=== PATIENT | male | born 1960 ===

== ENCOUNTER 2018-01-27 09:30 | Inpatient (IN) | payer OTHER ==
[~2018-01-27] VITALS: Ht 177.8 cm; Wt 86.2 kg
== END 2018-02-21 07:45 | disposition expired | DRG 329 ==
LOC: SURG 01-30 07:00 → RECOVERY 01-30 09:30 → O/R 02-13 08:30 → SURG 02-13 09:30 → O/R 02-13 16:20 → SURG 02-13 20:00 → SURH 02-14 13:36
PROVIDERS: Surgery
PROC: 0JX80ZZ Transfer Abdomen Subcutaneous Tissue and Fascia, Open Approach (ICD-10-PCS; 2018-02-13)
PROC: 0W9F00Z Drainage of Abdominal Wall with Drainage Device, Open Approach (ICD-10-PCS; 2018-02-13)
PROC: 0HB7XZZ Excision of Abdomen Skin, External Approach (ICD-10-PCS; 2018-02-13)
PROC: 0DQB4ZZ Repair Ileum, Percutaneous Endoscopic Approach (ICD-10-PCS; principal; 2018-02-13 20:00)
PROC: 0WUF0JZ Supplement Abdominal Wall with Synthetic Substitute, Open Approach (ICD-10-PCS; 2018-02-13 20:00)
PROC: 3E0F7GC Introduction of Other Therapeutic Substance into Respiratory Tract, Via Natural or Artificial Opening (ICD-10-PCS; 2018-02-18)
PROC: 4A033R1 Measurement of Arterial Saturation, Peripheral, Percutaneous Approach (ICD-10-PCS; 2018-02-18)
PROC: 02HV33Z Insertion of Infusion Device into Superior Vena Cava, Percutaneous Approach (ICD-10-PCS; 2018-02-19)
PROC: BW25Y0Z Computerized Tomography (CT Scan) of Chest, Abdomen and Pelvis using Other Contrast, Unenhanced and Enhanced (ICD-10-PCS; 2018-02-20)
PROC: 3E0436Z Introduction of Nutritional Substance into Central Vein, Percutaneous Approach (ICD-10-PCS; 2018-02-20)
PROC: 0BH17EZ Insertion of Endotracheal Airway into Trachea, Via Natural or Artificial Opening (ICD-10-PCS; 2018-02-21)
DX: K43.0 Incisional hernia with obstruction, without gangrene (principal); A41.9 Sepsis, unspecified organism; J95.89 Other postprocedural complications and disorders of respiratory system, not elsewhere classified; J98.11 Atelectasis; T81.4XXA Infection following a procedure, initial encounter; N17.8 Other acute kidney failure; J90 Pleural effusion, not elsewhere classified; I97.121 Postprocedural cardiac arrest following other surgery; K91.31 Postprocedural partial intestinal obstruction; Z43.2 Encounter for attention to ileostomy; N99.0 Postprocedural (acute) (chronic) kidney failure